=== PATIENT | female | born 1985 | race Caucasian/White ===

== ENCOUNTER 2017-01-20 17:32 | Emergency (ER) | payer SELFPAY ==
--- NOTE | 2017-01-20 17:54 | EDM.PDOC ---
<Jairo Fletcher - Last Filed: 01/20/17 20:14> ED HPI GENERAL MEDICAL PROBLEM - General Chief Complaint: Skin Complaint Stated Complaint: INFECTION ON LEG [id number] Time Seen by Provider: 01/20/17 17:51 - Related Data Allergies Allergy/AdvReac Type Severity Reaction Status Date / Time No Known Allergies Allergy Verified 01/20/17 17:45 Home Meds: Home Meds Sulfamethoxazole/Trimethoprim [Bactrim Ds Tablet] 1 each PO BID 01/20/17 [ History] hydrOXYzine HCl [Atarax] 25 mg PO Q6H PRN 01/20/17 [History] Course - Vital Signs Last Recorded V/S: Last Vital Signs Temp 37.0 C 01/20/17 17:48 Pulse 114 H 01/20/17 17:48 Resp 16 01/20/17 17:48 BP 145/83 H 01/20/17 17:48 Pulse Ox 98 01/20/17 17:48 - Orders/Labs/Meds Labs: Laboratory Tests 01/20/17 Range/Units 18:45 WBC 12.2 H (5.0-10.0) 10^3/uL RBC 4.02 L (4.2-5.4) 10^6/uL Hgb 10.1 L (12.0-16.0) g/dL Hct 32.9 L (37.0-47.0) % MCV 81.8 (80-100) fL MCH 25.1 L (27.0-34.0) pg MCHC 30.7 L (33.0-35.0) g/dL Plt Count 353 (150-450) 10^3/uL Neut % (Auto) 85.0 H (42.2-75.2) % Lymph % (Auto) 9.4 L (20.5-50.1) % [place] % (Auto) 5.3 (2-8) % Eos % (Auto) 0.1 L (1.0-3.0) % Baso % (Auto) 0.2 (0.0-1.0) % Meds: Medications Discontinued Medications Generic Name Dose Route Start Last Admin Trade Name Freq PRN Reason Stop Dose Admin Hydrocodone Bitart/Acetaminophen 1 tab 01/20/17 19:19 01/20/17 19:33 [place] 325-10 Mg PO 01/20/17 19:20 1 tab ONETIME ONE Administration Clindamycin Phosphate 900 mg/ 106 mls @ 200 mls/hr 01/20/17 19:19 01/20/17 19 :34 Sodium Chloride IV 01/20/17 19:50 200 mls/hr ONETIME ONE Administration Promethazine HCl/Codeine 5 ml 01/20/17 20:08 01/20/17 20:13 Phenergan With Codeine PO 01/20/17 20:09 5 ml ONETIME ONE Administration - Re-Assessments/Exams Free Text/Narrative Re-Assessment/Exam: 01/20/17 19:19 re-exam: left lower medial abscess with central hole, local cellulitis with minimal lymphangitis, NV wnl. 01/20/17 20:14 re-exam; feeling better but abscess looks worse. pt & mother instructed. Departure - Departure Time of Disposition: 20:15 Disposition: Home, Self-Care 01 Condition: Good Clinical Impression: Abscess Cellulitis Qualifiers: Site of cellulitis: extremity Site of cellulitis of extremity: lower extremity Laterality: left Qualified Code(s): L03.116 - Cellulitis of left lower limb - Discharge Information Instructions: Cellulitis, Adult, [id number] Forms: ED Department Discharge Additional Instructions: 1) elevate leg as much as possible next 48 hours 2) return if red lines develop along leg rx given; clindamycin 150mg qid x 40 phenergan codeine syrup qid prn x 4oz <FlaviotonyMarito zamorano - Last Filed: 01/26/17 07:15> ED HPI GENERAL MEDICAL PROBLEM - General Source of Information: Reports: Patient History Limitations: Reports: No Limitations - History of Present Illness INITIAL COMMENTS - FREE TEXT/NARRATIVE: 31 yo female c/o left leg infection after bug bite on Monday week and seen by PCP yesterday and started on Bactrim DS. Pt. states similar infection to arm many years ago. Pt. denies fever or chills. Onset Date: 01/17/17 Onset Time: 12:00 Duration: Day(s): Location: Reports: Lower Extremity, Left Quality: Reports: Ache Severity: Moderate Improves with: Reports: None Worsens with: Reports: None Associated Symptoms: Reports: No Other Symptoms Left Lower Posterior Leg Pain Score (Numeric/FACES): 7 Past Medical History - Infectious Disease History Infectious Disease History: Reports: Chicken Pox Social & Family History - Tobacco Use Smoking Status *Q: Current Every Day Smoker Years of Tobacco use: 10 Packs/Tins Daily: 0.2 - Caffeine Use Caffeine Use: Reports: Energy Drinks, Soda, Tea - Alcohol Use Days Per Week of Alcohol Use: 4 Number of Drinks Per Day: 2 Total Drinks Per Week: 8 - Recreational Drug Use Recreational Drug Use: Yes Recreational Drug Type: Reports: Marijuana/Hashish Recreational Drug Use Frequency: Daily ED ROS GENERAL - Review of Systems Review Of Systems: See Below Constitutional: Reports: No Symptoms HEENT: Reports: No Symptoms Respiratory: Reports: No Symptoms Cardiovascular: Reports: No Symptoms Endocrine: Reports: No Symptoms GI/Abdominal: Reports: No Symptoms : Reports: No Symptoms Musculoskeletal: Reports: Leg Pain (left in area of infection) Skin: Reports: Erythema, Wound Neurological: Reports: No Symptoms Psychiatric: Reports: No Symptoms Hematologic/Lymphatic: Reports: No Symptoms Immunologic: Reports: No Symptoms ED EXAM, SKIN/RASH Exam: See Below Exam Limited By: No Limitations General Appearance: Alert, WD/WN, No Apparent Distress Eye Exam: Bilateral Eye: PERRL Ears: Normal External Exam Nose: Normal Inspection Throat/Mouth: Normal Inspection, Normal Lips Head: Atraumatic, Normocephalic Neck: Normal Inspection, Supple, Non-Tender Respiratory/Chest: No Respiratory Distress Cardiovascular: Normal Peripheral Pulses, Regular Rate, Rhythm, No Edema Peripheral Pulses: 2+: Dorsalis Pedis (L), Dorsalis Pedis (R) GI/Abdominal: Normal Bowel Sounds Back Exam: Normal Inspection Extremities: Normal Range of Motion, Leg Pain, Redness (approx 3cm w/ dark center and clear drainage) Neurological: Alert, Oriented, CN II-XII Intact Psychiatric: Normal Affect Skin: Dry, Erythema (3cm surrounding erythema w/ dark center and tender), Wound/ Incision Location, Skin: Lower Extremity, Left Characteristics: Macular, Erythematous Associated features: Warmth, Tenderness Lymphatic: No Adenopathy Course - Orders/Labs/Meds Labs: Laboratory Tests 01/20/17 Range/Units 18:45 WBC 12.2 H (5.0-10.0) 10^3/uL RBC 4.02 L (4.2-5.4) 10^6/uL Hgb 10.1 L (12.0-16.0) g/dL Hct 32.9 L (37.0-47.0) % MCV 81.8 (80-100) fL MCH 25.1 L (27.0-34.0) pg MCHC 30.7 L (33.0-35.0) g/dL Plt Count 353 (150-450) 10^3/uL Neut % (Auto) 85.0 H (42.2-75.2) % Lymph % (Auto) 9.4 L (20.5-50.1) % [place] % (Auto) 5.3 (2-8) % Eos % (Auto) 0.1 L (1.0-3.0) % Baso % (Auto) 0.2 (0.0-1.0) % Meds: Medications Discontinued Medications Generic Name Dose Route Start Last Admin Trade Name Freq PRN Reason Stop Dose Admin Hydrocodone Bitart/Acetaminophen 1 tab 01/20/17 19:19 01/20/17 19:33 [place] 325-10 Mg PO 01/20/17 19:20 1 tab ONETIME ONE Administration Clindamycin Phosphate 900 mg/ 106 mls @ 200 mls/hr 01/20/17 19:19 01/20/17 19 :34 Sodium Chloride IV 01/20/17 19:50 200 mls/hr ONETIME ONE Administration Promethazine HCl/Codeine 5 ml 01/20/17 20:08 01/20/17 20:13 Phenergan With Codeine PO 01/20/17 20:09 5 ml ONETIME ONE Administration
[2017-01-20] MEDS ORDERED: Clindamycin Phosphate 900 MG in Sodium Chloride 0.9% 100 ML IV ONE (19:19)
[2017-01-20] MEDS ORDERED: Acetaminophen/HYDROcodone 325-10 MG Tab PO ONE (19:19)
[2017-01-20] MEDS ORDERED: Codeine/Promethazine 10-6.25 MG/5 ML Syrup 5 ML UD Cup PO ONE (20:08)
== END 2017-01-20 20:29 | disposition home or self-care (01) ==
LOC: DL.ED 17:32
DX: L03.116 Cellulitis of left lower limb (principal); L02.416 Cutaneous abscess of left lower limb; F17.210 Nicotine dependence, cigarettes, uncomplicated
CPT/HCPCS: 36415; 85025; 87070; 87205; 96365; 99283; A9270; J7050; 87077; 99284; S0077

== ENCOUNTER 2020-01-03 19:33 | Emergency (ER) | payer SELFPAY ==
[2020-01-03] MEDS ORDERED: LORazepam 0.5 MG Tab PO ONE (19:34)
[2020-01-03] MEDS ORDERED: LORazepam 1 MG Tab PO ONE (20:57)
[2020-01-03] MEDS ORDERED: Ondansetron 4 MG Tab.DIS PO ONE (20:57)
[2020-01-03 21:05] LABS: ANION GAP 30.4 mEq/L (7-13); CHLORIDE,CL 98 mmol/L (98-107); SODIUM,NA 138 mmol/L (136-145)
--- NOTE | 2020-01-03 21:28 | EDM.PDOCBH ---
ED HPI GENERAL MEDICAL PROBLEM - General Chief Complaint: Behavioral/Psych Stated Complaint: PANIC ATTACK Time Seen by Provider: 01/03/20 21:00 Source of Information: Reports: Patient, Family, RN, RN Notes Reviewed History Limitations: Reports: No Limitations - History of Present Illness INITIAL COMMENTS - FREE TEXT/NARRATIVE: Patient presents to ER with complaint of severe anxiety attack. Patient states she has been having more and more anxiety attacks over the past several weeks. A few weeks ago was started on Lexapro and hydroxyzine for the anxiety by her primary care provider. She states sometimes there are triggers for the anxiety attacks and sometimes they come on spontaneously when she is doing nothing. Patient admits to chest pains, shortness of breath, nausea and vomiting. Patient states she is a daily drinker 4-5 beers a day, as well as daily marijuana use. Onset: Today, Sudden Treatments WEBSPHERE CONSULTANT: Reports: Other (see below) Other Treatments WEBSPHERE CONSULTANT: none - Related Data Allergies Allergy/AdvReac Type Severity Reaction Status Date / Time No Known Allergies Allergy Verified 01/03/20 20:01 Home Meds: Home Meds hydrOXYzine HCl [Atarax] 25 mg PO TID PRN 01/20/17 [History] Escitalopram Oxalate 10 mg PO BEDTIME 01/03/20 [History] Past Medical History Cardiovascular History: Reports: Hypertension, Other (See Below) Other Cardiovascular History: states "not bad enough to treat" Psychiatric History: Reports: Panic Attack - Infectious Disease History Infectious Disease History: Reports: Chicken Pox Social & Family History - Family History Family Medical History: Noncontributory - Tobacco Use Smoking Status *Q: Former Smoker Used Tobacco, but Quit: Yes Month/Year Tobacco Last Used: 04/2017 - Caffeine Use Caffeine Use: Reports: Soda - Alcohol Use Days Per Week of Alcohol Use: 7 Number of Drinks Per Day: 4 Total Drinks Per Week: 28 - Recreational Drug Use Recreational Drug Use: Yes Recreational Drug Type: Reports: Marijuana/Hashish Recreational Drug Use Frequency: Daily ED ROS GENERAL - Review of Systems Review Of Systems: Comprehensive ROS is negative, except as noted in HPI. ED EXAM, BEHAVIORAL HEALTH - Physical Exam Exam: See Below Exam Limited By: No Limitations General Appearance: Alert, WD/WN, Anxious, Moderate Distress Eye Exam: Bilateral Eye: EOMI, Normal Inspection Ears: Normal External Exam, Hearing Grossly Normal Nose: Normal Inspection Throat/Mouth: Normal Inspection, Normal Voice, No Airway Compromise Head: Atraumatic, Normocephalic Neck: Normal Inspection, Supple, Non-Tender, Full Range of Motion Respiratory/Chest: No Respiratory Distress, Lungs Clear, Normal Breath Sounds, No Accessory Muscle Use, Chest Non-Tender Cardiovascular: Normal Peripheral Pulses, Regular Rate, Rhythm, No Edema, No Gallop, No JVD, No Murmur, No Rub GI/Abdominal: Normal Bowel Sounds, Soft, Non-Tender, No Distention (Female) Exam: Deferred Rectal (Female) Exam: Deferred Back Exam: Normal Inspection, Full Range of Motion, NT Extremities: Normal Inspection, Normal Range of Motion, Non-Tender, Normal Capillary Refill, No Pedal Edema Neurological: Alert, CN II-XII Intact, Normal Cognition, Normal Gait, Normal Reflexes, No Motor/Sensory Deficits, Oriented x 3 Psychiatric: Alert, Normal Cognition, Oriented, Tearful Skin Exam: Warm, Dry, Intact, Normal color, No rash COURSE, BEHAVIORAL HEALTH COMP - Course Vital Signs: Last Vital Signs Temp 97.8 F 01/03/20 19:35 Pulse 111 H 01/03/20 19:35 Resp 48 H 01/03/20 19:35 BP 112/98 H 01/03/20 19:35 Pulse Ox 100 01/03/20 19:35 Orders, Labs, Meds: Laboratory Tests 01/03/20 01/03/20 01/03/20 Range/Units 20:27 20:27 20:27 WBC (5.0-10.0) 10^3/uL RBC (4.2-5.4) 10^6/uL Hgb (12.0-16.0) g/dL Hct (37.0-47.0) % MCV (80-100) fL MCH (27.0-34.0) pg MCHC (33.0-35.0) g/dL Plt Count (150-450) 10^3/uL Neut % (Auto) (42.2-75.2) % Lymph % (Auto) (20.5-50.1) % [place] % (Auto) (2-8) % Eos % (Auto) (1.0-3.0) % Baso % (Auto) (0.0-1.0) % Sodium (136-145) mmol/L Potassium (3.5-5.1) mmol/L Chloride (98-107) mmol/L Carbon Dioxide (21-32) mmol/L Anion Gap (7-13) mEq/L BUN (7-18) mg/dL Creatinine (0.55-1.02) mg/dL Est Cr Clr Drug Dosing mL/min Estimated GFR (MDRD) BUN/Creatinine Ratio (No establ ref range) Glucose (74-99) mg/dL Calcium (8.5-10.1) mg/dL Total Bilirubin (0.2-1.0) mg/dL AST (15-37) U/L ALT (14-59) U/L Alkaline Phosphatase (46-116) U/L Total Protein (6.4-8.2) g/dL Albumin (3.4-5.0) g/dL Globulin Albumin/Globulin Ratio Urine Color Yellow (YELLOW) Urine Appearance Slightly cloudy (CLEAR) Urine pH 5.5 (5.0-9.0) Ur Specific [place] >= 1.030 (1.005-1.030) Urine Protein 30 H (NEGATIVE) Urine Glucose (UA) Negative (NEGATIVE) Urine Ketones 80 H (NEGATIVE) Urine Occult Blood Negative (NEGATIVE) Urine Nitrite Negative (NEGATIVE) Urine Bilirubin Negative (NEGATIVE) Urine Urobilinogen 0.2 (0.2-1.0) mg/dL Ur Leukocyte Esterase Negative (NEGATIVE) Urine RBC 0-5 /HPF Urine WBC 0-5 (0-5/HPF) /HPF Ur Epithelial Cells Many H (NOT SEEN) /HPF Urine Bacteria Many H (0-FEW/HPF) /HPF Urine HCG, Qual Negative Urine Opiates Screen Negative (NEGATIVE) Ur Oxycodone Screen Negative (NEGATIVE) Urine Methadone Screen Negative (NEGATIVE) Ur Barbiturates Screen Negative (NEGATIVE) U Tricyclic Antidepress Negative (NEGATIVE) Ur Phencyclidine Scrn Negative (NEGATIVE) Ur Amphetamine Screen Negative (NEGATIVE) U Methamphetamines Scrn Negative (NEGATIVE) Urine MDMA Screen Negative (NEGATIVE) U Benzodiazepines Scrn Negative (NEGATIVE) Urine Cocaine Screen Negative (NEGATIVE) U Marijuana (THC) Screen Positive H (NEGATIVE) Ethyl Alcohol (0) mg/dL 01/03/20 01/03/20 Range/Units 20:40 20:40 WBC 15.3 H (5.0-10.0) 10^3/uL RBC 4.57 (4.2-5.4) 10^6/uL Hgb 14.2 D (12.0-16.0) g/dL Hct 41.7 (37.0-47.0) % MCV 91.2 D (80-100) fL MCH 31.1 (27.0-34.0) pg MCHC 34.1 (33.0-35.0) g/dL Plt Count 219 D (150-450) 10^3/uL Neut % (Auto) 91.6 H (42.2-75.2) % Lymph % (Auto) 5.0 L (20.5-50.1) % [place] % (Auto) 2.5 (2-8) % Eos % (Auto) 0.1 L (1.0-3.0) % Baso % (Auto) 0.8 (0.0-1.0) % Sodium 138 (136-145) mmol/L Potassium 4.4 (3.5-5.1) mmol/L Chloride 98 (98-107) mmol/L Carbon Dioxide 14 L (21-32) mmol/L Anion Gap 30.4 H (7-13) mEq/L BUN 5 L (7-18) mg/dL Creatinine 0.94 (0.55-1.02) mg/dL Est Cr Clr Drug Dosing 74.19 mL/min Estimated GFR (MDRD) > 60 BUN/Creatinine Ratio 5.3 (No establ ref range) Glucose 136 H (74-99) mg/dL Calcium 9.1 (8.5-10.1) mg/dL Total Bilirubin 1.0 (0.2-1.0) mg/dL AST 74 H (15-37) U/L ALT 28 (14-59) U/L Alkaline Phosphatase 70 (46-116) U/L Total Protein 7.9 (6.4-8.2) g/dL Albumin 4.2 (3.4-5.0) g/dL Globulin 3.7 Albumin/Globulin Ratio 1.1 Urine Color (YELLOW) Urine Appearance (CLEAR) Urine pH (5.0-9.0) Ur Specific [place] (1.005-1.030) Urine Protein (NEGATIVE) Urine Glucose (UA) (NEGATIVE) Urine Ketones (NEGATIVE) Urine Occult Blood (NEGATIVE) Urine Nitrite (NEGATIVE) Urine Bilirubin (NEGATIVE) Urine Urobilinogen (0.2-1.0) mg/dL Ur Leukocyte Esterase (NEGATIVE) Urine RBC /HPF Urine WBC (0-5/HPF) /HPF Ur Epithelial Cells (NOT SEEN) /HPF Urine Bacteria (0-FEW/HPF) /HPF Urine HCG, Qual Urine Opiates Screen (NEGATIVE) Ur Oxycodone Screen (NEGATIVE) Urine Methadone Screen (NEGATIVE) Ur Barbiturates Screen (NEGATIVE) U Tricyclic Antidepress (NEGATIVE) Ur Phencyclidine Scrn (NEGATIVE) Ur Amphetamine Screen (NEGATIVE) U Methamphetamines Scrn (NEGATIVE) Urine MDMA Screen (NEGATIVE) U Benzodiazepines Scrn (NEGATIVE) Urine Cocaine Screen (NEGATIVE) U Marijuana (THC) Screen (NEGATIVE) Ethyl Alcohol < 3 (0) mg/dL Medications Discontinued Medications Generic Name Dose Route Start Last Admin Trade Name Freq PRN Reason Stop Dose Admin Lorazepam 1 mg 01/03/20 20:57 01/03/20 21:13 Ativan PO 01/03/20 20:58 1 mg ONETIME ONE Administration Ondansetron HCl 4 mg 01/03/20 20:57 01/03/20 21:13 Zofran Odt PO 01/03/20 20:58 4 mg ONETIME ONE Administration Departure - Departure Time of Disposition: 21:58 Disposition: Home, Self-Care 01 Condition: Fair Clinical Impression: Anxiety, Panic disorder - Discharge Information *PRESCRIPTION DRUG MONITORING PROGRAM REVIEWED*: No *COPY OF PRESCRIPTION DRUG MONITORING REPORT IN PATIENT MARK: No Instructions: Panic Attack, [id number], Living With Anxiety, Supporting Someone With Anxiety Forms: ED Department Discharge Additional Instructions: Follow up with your primary care facility RX: Lorazepam (Ativan) as directed Refrain from drinking alcohol Drink plenty of water Sepsis Event Note (ED) - Evaluation Sepsis Screening Result: No Definite Risk - Focused Exam Vital Signs: Vital Signs Temp Pulse Resp BP Pulse Ox 01/03/20 19:35 97.8 F 111 H 48 H 112/98 H 100
[2020-01-03] MEDS ORDERED: LORazepam 0.5 MG Tab ONE (22:18)
== END 2020-01-03 22:24 | disposition home or self-care (01) ==
LOC: DL.ED 19:33
DX: F41.0 Panic disorder [episodic paroxysmal anxiety] (principal); I10 Essential (primary) hypertension; Z87.891 Personal history of nicotine dependence; Z79.899 Other long term (current) drug therapy
CPT/HCPCS: 36415; 80053; 80305; 80307; 81001; 81025; 85025; 99283; A9270

== ENCOUNTER 2023-10-04 10:41 | Emergency (ER) | payer SELFPAY ==
[2023-10-04 11:23] LABS: BASOPHILS PERCENT AUTO 0.5 % (0.0-1.0); EOSINOPHILS PERCENT AUTO 0.4 % (1.0-3.0); LYMPHOCYTES PERCENT AUTO 11.5 % (20.5-50.1); MEAN CORPUSCULAR HEMOGLOBIN 31.4 pg (27.0-34.0); MEAN CORPUSCULAR HGB CONC 32.3 g/dL (33.0-35.0); MEAN CORPUSCULAR VOLUME 97.5 fL (80-100); MONOCYTES PERCENT AUTO 12.4 % (2-8); NEUTROPHILS PERCENT AUTO 75.2 % (42.2-75.2); PLATELET COUNT,PLT 156 10^3/uL (150-450); RED BLOOD CELL COUNT 3.18 10^6/uL (4.2-5.4); WHITE BLOOD CELL COUNT,WBC 8.3 10^3/uL (5.0-10.0)
[2023-10-04] MEDS: Ondansetron 4 MG/2 ML SDV IV ONE (11:32)
[2023-10-04] MEDS: LORazepam 2 MG/ML SDV IVPUSH ONE (11:32)
[2023-10-04] MEDS: Sodium Chloride 0.9% 10 ML Syringe FLUSH PRN (11:32)
[2023-10-04 11:48] LABS: ALANINE AMINOTRANSFERASE,ALT 11 U/L (14-59); ALKALINE PHOSPHATASE 197 U/L (46-116); ANION GAP 11.9 mEq/L (7-13); ASPARTATE AMNIOTRANSFERASE,AST 106 U/L (15-37); BILIRUBIN TOTAL 11.9 mg/dL (0.2-1.0); BLOOD UREA NITROGEN,BUN 3 mg/dL (7-18); BUN/CREATININE RATIO 4.8 (No establ ref range); CALCIUM 8.8 mg/dL (8.5-10.1); CARBON DIOXIDE,CO2 31 mmol/L (21-32); CHLORIDE,CL 92 mmol/L (98-107); CREATININE 0.63 mg/dL (0.55-1.02); GLUCOSE RANDOM 107 mg/dL (70-99); LIPASE 53 U/L (16-77); POTASSIUM,K 2.9 mmol/L (3.5-5.1); PROTEIN TOTAL,TP 7.4 g/dL (6.4-8.2); SODIUM,NA 132 mmol/L (136-145)
[2023-10-04 11:49] LABS: INR 1.5 (0.9-1.2); PROTHROMBIN TIME 15.5 SEC (9.0-12.0); PTT,PARTIAL THROMBOPLSTIN TIME 28.9 SEC (22.0-34.0)
[2023-10-04 11:50] LABS: A/G RATIO 0.37; ESTIMATED GFR 118 mL/min (>=60); ETHANOL BLOOD MEDICAL < 3 mg/dL (0)
[2023-10-04 11:57] LABS: LACTIC ACID 2.5 mmol/L (0.4-2.0)
[2023-10-04] MEDS: Pantoprazole 40 MG Vial IVPUSH ONE (12:02)
[2023-10-04 12:11] LABS: APPEARANCE,URINE SLIGHTLY CLOUDY (CLEAR); BILIRUBIN,URINE LARGE (NEGATIVE); GLUCOSE,URINE 100 (NEGATIVE); KETONES,URINE 15 (NEGATIVE); LEUKOCYTE ESTERASE,URINE NEGATIVE (NEGATIVE); NITRITE,URINE NEGATIVE (NEGATIVE); OCCULT BLOOD,URINE NEGATIVE (NEGATIVE); PROTEIN,URINE 100 (NEGATIVE)
[2023-10-04] MEDS: Lidocaine 1% 5 ML VIAL INJECT ONE (12:13)
[2023-10-04] MEDS: Potassium Chloride 10 MEQ in Premix Bag 1 BAG IV ONE (12:14)
[2023-10-04] MEDS: Potassium Chloride 10 MEQ Tab.ER PO ONE (12:14)
[2023-10-04 12:19] LABS: AMPHETAMINES,URINE NEGATIVE (NEGATIVE); BARBITURATES,URINE NEGATIVE (NEGATIVE); BENZODIAZEPINE,URINE NEGATIVE (NEGATIVE); MDMA (ECSTASY), URINE NEGATIVE (NEGATIVE); METHADONE,URINE NEGATIVE (NEGATIVE); METHAMPHETAMINES,URINE NEGATIVE (NEGATIVE); OPIATES,URINE NEGATIVE (NEGATIVE); OXYCODONE,URINE NEGATIVE (NEGATIVE); PHENCYCLIDINE,URINE NEGATIVE (NEGATIVE); TCA,URINE NEGATIVE (NEGATIVE)
[2023-10-04 12:35] LABS: COLOR,URINE AMBER (YELLOW)
[2023-10-04 12:36] LABS: BACTERIA,URINE FEW /HPF (0-FEW/HPF); EPITHELIAL CELLS,URINE MODERATE /HPF (NOT SEEN); MUCUS,URINE FEW /LPF (NOT SEEN); RBC,URINE 0-5 /HPF (0-5); WBC,URINE 0-5 /HPF (0-5/HPF)
[2023-10-04] MEDS: Thiamine 200 MG in Sodium Chloride 0.9% 100 ML IV ONE (13:16)
== END 2023-10-04 13:38 | disposition home or self-care (01) ==
LOC: DL.ED 10:41
DX: K70.31 Alcoholic cirrhosis of liver with ascites (principal); F41.9 Anxiety disorder, unspecified; F10.10 Alcohol abuse, uncomplicated; I10 Essential (primary) hypertension; Z79.899 Other long term (current) drug therapy
CPT/HCPCS: 36415; 76705; 80053; 80305; 80307; 81001; 81025; 82140; 83605; 83690; 85025; 85610; 85730; 96365; 96367; 96375; 99284; A9270; C9113; J2060; J2405; J3411; J3480; J3490